=== PATIENT | male | born 1965 | race Native Hawaiian/Other Pacific Islander ===

== ENCOUNTER 2019-03-23 15:23 | Emergency (ER) | payer OTHER ==
[~2019-03-23] VITALS: Ht 193 cm; Wt 117.0 kg
[2019-03-23 15:50] VITALS: BP 129/85; TEMP 98.3
== END 2019-03-23 17:03 | disposition home or self-care (01) ==
LOC: ED 15:23
DX: M54.5 Low back pain (principal); G89.29 Other chronic pain
CPT/HCPCS: 99282